=== PATIENT | male | born 1955 | race Caucasian/White ===

== ENCOUNTER → 2016-12-23 | Outpatient (CLI) | payer BC ==
[~2016-12-23] MED LIST: AMBIEN10 MG PO; CALCIUM CITRATE1 TA7 PO; COLACE 100100 MG/CAP PO; DARVOCET N 101 UDTAB PO; FENTANYL 25 MCG TP; HCTZ 25MG25 MG PO; HYDROCORT TP; L-TYROSINE500 MG PO; MIRALAX17 GM/DOSE PO; NORCO 325 MG-51 TAB PO; NORCO 325 MG-7.1 TAB; OCUVITE1 TA1 PO; OMEGA 31000 MG PO; PERCOCET 325 MG1 TAB PO; PRILOSEC20 MG PO; SARNA 0.5%-0.5222 ML TP; TENORMIN25 MG PO; TYLENOL 325MG325 MG PO; VITAMIN B122500 MCG PO; VITAMIN B6100 MG PO; ZOCOR 20MG20 MG PO
== END ==
LOC: MHCPAIN 10:23
DX: G89.29 Other chronic pain (principal); M47.817 Spondylosis without myelopathy or radiculopathy, lumbosacral region; M54.16 Radiculopathy, lumbar region; M53.3 Sacrococcygeal disorders, not elsewhere classified; M48.06 Spinal stenosis, lumbar region
CPT/HCPCS: G0463

== ENCOUNTER → 2016-12-29 | Outpatient (CLI) | payer BC | LOC: MHCPAIN 13:02 | DX: M47.817 Spondylosis without myelopathy or radiculopathy, lumbosacral region (principal) | CPT/HCPCS: J1100; Q9967 ==

== ENCOUNTER → 2017-01-30 | Outpatient (CLI) | payer BC | LOC: MHCPAIN 11:15 | DX: G89.29 Other chronic pain (principal); M47.817 Spondylosis without myelopathy or radiculopathy, lumbosacral region; M54.16 Radiculopathy, lumbar region; M25.551 Pain in right hip; M25.552 Pain in left hip | CPT/HCPCS: G0463 ==

== ENCOUNTER → 2017-01-30 | Outpatient (CLI) | payer BC | LOC: COL.RAD 14:01 | DX: M16.12 Unilateral primary osteoarthritis, left hip (principal) ==

== ENCOUNTER → 2017-02-02 | Outpatient (CLI) | payer BC | LOC: MHCPAIN 07:42 | DX: M47.817 Spondylosis without myelopathy or radiculopathy, lumbosacral region (principal); M48.06 Spinal stenosis, lumbar region | CPT/HCPCS: J1040; Q9967 ==

== ENCOUNTER → 2017-02-24 | Outpatient (CLI) | payer BC | LOC: MHCPAIN 11:20 | DX: G89.29 Other chronic pain (principal); M47.817 Spondylosis without myelopathy or radiculopathy, lumbosacral region; M54.16 Radiculopathy, lumbar region; M53.3 Sacrococcygeal disorders, not elsewhere classified | CPT/HCPCS: G0463 ==

== ENCOUNTER → 2017-05-29 | Outpatient (CLI) | payer BC, OTHER | LOC: MHCPAIN 09:54 | DX: G89.29 Other chronic pain (principal); M47.27 Other spondylosis with radiculopathy, lumbosacral region; M53.3 Sacrococcygeal disorders, not elsewhere classified | CPT/HCPCS: G0463 ==

== ENCOUNTER → 2017-06-01 | Outpatient (CLI) | payer BC, OTHER | LOC: MHCPAIN 14:16 | DX: M48.061 Spinal stenosis, lumbar region without neurogenic claudication (principal); M51.36 Other intervertebral disc degeneration, lumbar region | CPT/HCPCS: J1040; Q9967 ==

== ENCOUNTER → 2017-06-29 | Outpatient (CLI) | payer BC, OTHER | LOC: MHCPAIN 11:37 | DX: M47.817 Spondylosis without myelopathy or radiculopathy, lumbosacral region (principal); M46.96 Unspecified inflammatory spondylopathy, lumbar region ==

== ENCOUNTER → 2017-07-11 | Outpatient (CLI) | payer BC, OTHER | LOC: MHCPAIN 10:22 | DX: G89.29 Other chronic pain (principal); M47.817 Spondylosis without myelopathy or radiculopathy, lumbosacral region; M53.3 Sacrococcygeal disorders, not elsewhere classified | CPT/HCPCS: G0463 ==

== ENCOUNTER → 2017-07-20 | Outpatient (CLI) | payer BC, OTHER | LOC: MHCPAIN 09:09 | DX: M47.817 Spondylosis without myelopathy or radiculopathy, lumbosacral region (principal) ==

== ENCOUNTER → 2017-07-25 | Outpatient (CLI) | payer BC | LOC: MHCPAIN 15:21 | DX: G89.29 Other chronic pain (principal); M47.817 Spondylosis without myelopathy or radiculopathy, lumbosacral region; M53.3 Sacrococcygeal disorders, not elsewhere classified | CPT/HCPCS: G0463 ==

== ENCOUNTER → 2017-08-23 | Outpatient (CLI) | payer BC | LOC: MHCPAIN 12:56 | DX: G89.29 Other chronic pain (principal); M47.27 Other spondylosis with radiculopathy, lumbosacral region; M53.3 Sacrococcygeal disorders, not elsewhere classified; M48.061 Spinal stenosis, lumbar region without neurogenic claudication | CPT/HCPCS: G0463 ==

== ENCOUNTER → 2017-08-31 | Outpatient (CLI) | payer BC | LOC: MHCPAIN 09:30 | DX: M47.817 Spondylosis without myelopathy or radiculopathy, lumbosacral region (principal); M46.97 Unspecified inflammatory spondylopathy, lumbosacral region | CPT/HCPCS: J1100; J2250; J3010 ==

== ENCOUNTER → 2017-10-31 | Outpatient (CLI) | payer BC | LOC: MHCPAIN 10:42 | DX: G89.29 Other chronic pain (principal); M47.817 Spondylosis without myelopathy or radiculopathy, lumbosacral region; M54.16 Radiculopathy, lumbar region; M53.3 Sacrococcygeal disorders, not elsewhere classified; M96.1 Postlaminectomy syndrome, not elsewhere classified; M47.814 Spondylosis without myelopathy or radiculopathy, thoracic region | CPT/HCPCS: G0463 ==

== ENCOUNTER → 2017-11-08 | Outpatient (CLI) | payer BC | LOC: MHCPAIN 13:46 | DX: M70.61 Trochanteric bursitis, right hip (principal); M54.16 Radiculopathy, lumbar region | CPT/HCPCS: J1040 ==

== ENCOUNTER 2019-07-30 07:01 | Day surgery (SDC) | payer MEDICARE, BC ==
[~2019-07-30] VITALS: Ht 177.8 cm; Wt 92.3 kg
[2019-07-30] MEDS ORDERED: HCTZ 25MG TAB25 MG PO (07:23)
[2019-07-30] MEDS ORDERED: PRINIVIL10 MG PO (07:23)
[2019-07-30] MEDS ORDERED: PRESERVISION1 SGL PO (07:24)
[2019-07-30] MEDS ORDERED: TURMERIC500 MG PO (07:25)
[2019-07-30] MEDS ORDERED: VITAMIN B-6100 MG PO (07:25)
[2019-07-30] MEDS ORDERED: VITAMIN B122500 MCG SL (07:25)
[2019-07-30 07:28] VITALS: BP 134/94; PULSE 71; TEMP 97.7
[2019-07-30 09:05] VITALS: BP 117/76; PULSE 73; TEMP 98
--- NOTE | 2019-07-30 09:05 | NUR ---
The patient arrived back to [facility] at this time. The patient appears alert and oriented and denies any pain or nausea at this time. Post procedure vital signs were started at this time. The patient's is at his bedside at this time. Call light is within reach. The patient agrees to try some vanilla pudding and apple juice at this time. Will continue to monitor the patient.
[2019-07-30 09:20] VITALS: BP 111/83; PULSE 65
--- NOTE | 2019-07-30 09:20 | NUR ---
The patient appeared to tolerate the food and drink well and voices a desire to now try some cranberry juice and chocolate pudding. Vital signs appear stable. Call light remains within reach. Will continue to monitor the patient.
[2019-07-30 09:35] VITALS: BP 117/77; PULSE 63
--- NOTE | 2019-07-30 09:35 | NUR ---
The patient appears to be tolerating the food and drink well. The patient's had stepped out but is back at his bedside at this time. Vital signs appear stable. The patient denies wanting anything further to eat or drink at this time. Will continue to monitor the patient.
[2019-07-30 09:50] VITALS: BP 111/75; PULSE 67
--- NOTE | 2019-07-30 09:50 | NUR ---
Dr. Santiago is at the patient's bedside speaking with him and his regarding the findings of the procedure. Call light is within reach. Will continue to monitor the patient.
--- NOTE | 2019-07-30 10:00 | NUR ---
Discharge instructions were reviewed with the patient and his at this time. They both verbalized understanding and have no questions for the nurse at this time. The patient's IV to his right anecubital was removed and a pressure dressing was applied to the site. The nurse instructed the patient to get dressed and notify the staff when he is ready to be escorted out.
--- NOTE | 2019-07-30 10:10 | NUR ---
The patient was escorted out via wheelchair to a private vehicle by SEAN Lauren. The patient's is present to drive him home.
== END 2019-07-30 10:10 | disposition home or self-care (01) ==
LOC: SDCO 07:01
DX: K51.40 Inflammatory polyps of colon without complications (principal); K57.30 Diverticulosis of large intestine without perforation or abscess without bleeding; K64.0 First degree hemorrhoids; I10 Essential (primary) hypertension; E78.5 Hyperlipidemia, unspecified; Z96.651 Presence of right artificial knee joint; Z86.010 Personal history of colon polyps
CPT/HCPCS: J2250; J3010; J7030

== ENCOUNTER → 2020-08-17 | Outpatient (CLI) | payer MEDICARE, BC ==
[~2020-08-17] MED LIST changes: +HCTZ 25MG TAB25 MG PO; +PRESERVISION1 SGL PO; +PRINIVIL10 MG PO; +TURMERIC500 MG PO; +VITAMIN B-6100 MG PO; +VITAMIN B122500 MCG SL
== END ==
LOC: COL.RAD 13:52
DX: R35.1 Nocturia (principal)

== ENCOUNTER → 2021-07-28 | Outpatient (CLI) | payer MEDICARE, BC | LOC: COL.RAD 13:51 | DX: R35.1 Nocturia (principal) ==